=== PATIENT | male | born 2000 | race Asian ===

== ENCOUNTER 2022-03-01 17:27 | Emergency (ER) | payer OTHER ==
[2022-03-01] MEDS ORDERED: Dexamethasone 10 MG/ML VIAL ONE (18:23)
[2022-03-01] MEDS ORDERED: Ketorolac Tromethamine 30 MG/ML VIAL ONE (18:24)
== END 2022-03-01 20:49 | disposition home or self-care (01) ==
LOC: CSHERS 17:27
DX: S40.212A Abrasion of left shoulder, initial encounter (principal); S50.312A Abrasion of left elbow, initial encounter; V00.131A Fall from skateboard, initial encounter
CPT/HCPCS: 96374; 96375; J1100; J1885

== ENCOUNTER 2023-01-23 00:39 | Emergency (ER) | payer OTHER ==
[2023-01-23] MEDS ORDERED: Ketorolac Tromethamine 30 MG/ML VIAL ONE (01:00)
[2023-01-23 01:24] LABS: #Basophils 0.1 10x3/uL (0.0-0.2); #Eosinphils 0.7 10x3/uL (0.0-0.5); #Monocytes 0.9 10x3/uL (0.0-1.1); #Neutrophils 3.3 10x3/uL (1.5-8.4); %Basophils 0.9 % (0.0-2.0); %Eosinophils 10.5 % (0.0-6.0); %Lymphocytes 24.5 % (18.0-47.0); %Monocytes 13.2 % (0.0-10.0); %Neutrophils 50.6 % (40.0-75.0); Hemoglobin 16.7 g/dL (13.5-17.5); Mean Corpuscular HGB CONC 33.3 g/dL (32.0-36.0); Mean Corpuscular Hemoglobin 28.4 pg (27.0-33.0); Mean Corpuscular Volume 85.1 fl (81.2-95.1); Platelet Count 224 10x3/uL (150-450); RBC Distribution Width 12.6 % (11.5-14.5); Red Blood Cell (RBC) Count 5.89 10x6/uL (4.32-5.72); White Blood Cell (WBC) Count 6.5 10x3/uL (3.5-10.5)
[2023-01-23 01:30] LABS: Anion Gap 16 mmol/L (10-20); BUN (Urea Nitrogen) 14 mg/dL (8.9-20.6); CK (CPK) 187 U/L (30-200); Calc. Creatinine Clearance 0 mL/min (70-130); Calcium 9.9 mg/dL (7.8-10.44); Carbon Dioxide 24 mmol/L (22-29); Chloride 105 mmol/L (98-107); Estimated GFR 102; Glucose 89 mg/dL (70-105); Potassium 4.1 mmol/L (3.5-5.1); Sodium 141 mmol/L (136-145)
[2023-01-23 01:45] LABS: Bilirubin Neg (Negative); Blood, Urine Negative (Negative); Clarity Clear (Clear); Glucose, Urine (Dipstick) Normal (Negative); Ketone, Urine Negative (Negative); Leukocyte 25 (Negative); Nitrite Negative (Negative); Protein, Urine (Dipstick) Negative (Neg-Trace); Urobilinogen Normal mg/dL (Less than 2)
[2023-01-23 01:55] LABS: Bacteria/HPF None Seen HPF (None Seen); Squamous Epithelial 0-3 HPF (0-3); WBC/HPF 0-3 HPF (0-3)
== END 2023-01-23 02:50 | disposition home or self-care (01) ==
LOC: CSHERS 00:39
DX: R10.9 Unspecified abdominal pain (principal)
CPT/HCPCS: 74176; 80048; 81003; 81015; 82550; 85025; 96374; J1885